=== PATIENT | male | born 1970 | race Caucasian/White ===

== ENCOUNTER 2017-03-02 10:55 | Day surgery (SDC) | payer BC ==
[2017-03-02] MEDS ORDERED: PROPOFOL 20 ML ONE ×2 (11:15)
[2017-03-02 11:17] VITALS: BMI 39.0
[2017-03-02] MEDS ORDERED: INSULIN REGULAR HUMAN 100 UNITS/ML *VIAL SQ ONE (11:40)
[2017-03-02 14:27] VITALS: PULSE 85; TEMP 98.4
[2017-03-02 14:33] VITALS: BP 114/61
== END 2017-03-02 13:00 | disposition home or self-care (01) ==
LOC: FASU-ENDO 10:55
PROVIDERS: ATTEND Internal Medicine Gastroenterology
PROC: 2W53XYZ Removal of Other Device on Abdominal Wall (ICD-10-PCS; principal; 2017-03-02 11:50)
DX: Z43.1 Encounter for attention to gastrostomy (principal)